=== PATIENT | female | born 1985 | race Caucasian/White ===

== ENCOUNTER 2017-10-26 08:18 | Emergency (ER) | payer OTHER ==
[~2017-10-26] VITALS: Ht 172.7 cm; Wt 81.7 kg
[~2017-10-26 08:18] MED LIST: FLUO10 PO; Methazolamide25 MG PO; Norco 10-325 T1 EACH PO; Nuvaring Vagin1 EACH VG; ONDA4 PO; PROM25 PO; PROP10 PO; Percocet 5-3251 EACH PO; Zofran Odt4 MG SL
[2017-10-26] MEDS ORDERED: ESZO2 PO (09:50)
[2017-10-26] MEDS ORDERED: Omeprazole20 M1 PO (09:50)
[2017-10-26] MEDS ORDERED: BUPR100 PO (09:50)
[2017-10-26] MEDS ORDERED: PRIM50 (09:50)
[2017-10-26] MEDS ORDERED: Inderal40 MG PO (09:50)
[2017-10-26] MEDS ORDERED: Norco 5-325 Ta1 EACH PO (10:20)
== END 2017-10-26 10:37 | disposition home or self-care (01) ==
LOC: ER 08:18
DX: S06.9X9A Unspecified intracranial injury with loss of consciousness of unspecified duration, initial encounter (principal); S20.211A Contusion of right front wall of thorax, initial encounter; S70.11XA Contusion of right thigh, initial encounter; S80.11XA Contusion of right lower leg, initial encounter; F32.9 Major depressive disorder, single episode, unspecified; F41.9 Anxiety disorder, unspecified; F17.210 Nicotine dependence, cigarettes, uncomplicated; Z88.5 Allergy status to narcotic agent; Z79.899 Other long term (current) drug therapy; W22.8XXA Striking against or struck by other objects, initial encounter
CPT/HCPCS: 70450; 99284-25